=== PATIENT | female | born 1995 | race Caucasian/White ===

== ENCOUNTER 2024-03-30 22:16 | Emergency (ER) | payer OTHER ==
[~2024-03-30] VITALS: Ht 167.6 cm; Wt 117.0 kg
[2024-03-31] MEDS ORDERED: KETOROLAC TROMETHAMINE INJ 30 MG/ML VIAL ONE (00:08)
[2024-03-31] MEDS: KETOROLAC TROMETHAMINE INJ 30 MG/ML VIAL IM ONE (00:09)
[2024-03-31] MEDS ORDERED: KETO10TA2 PO (01:32)
[2024-03-31 01:52] VITALS: BP 156/93; TEMP 97.6; O2SAT 100
== END 2024-03-31 01:52 | disposition home or self-care (01) ==
LOC: ER 22:20
DX: S80.02XA Contusion of left knee, initial encounter (principal); X58.XXXA Exposure to other specified factors, initial encounter; Y93.89 Activity, other specified; Y92.89 Other specified places as the place of occurrence of the external cause; Y99.8 Other external cause status
CPT/HCPCS: 99285; 73700; 96372; J1885